=== PATIENT | female | born 1975 | race Caucasian/White ===

== ENCOUNTER 2017-05-25 09:39 | Emergency (ER) | payer BC ==
[2017-05-25 09:50] VITALS: BP 148/77
[2017-05-25] MEDS ORDERED: PRED20TA PO (10:14)
[2017-05-25] MEDS ORDERED: IBUP-1060 PO (10:14)
[2017-05-25] MEDS ORDERED: CYCL10TA2 PO (10:14)
--- NOTE | 2017-05-25 10:14 | PHYS DOC ---
Past Medical History Past Medical History: No Pertinent History Past Surgical History: Appendectomy Additional Information: 08/27 ppd Alcohol Use: Occasionally Drug Use: Marijuana Adult General Chief Complaint Chief Complaint: LOWER BACK PAIN OR INJURY HPI HPI Patient is a 42 year old female presents to the emergency department with a history of right lower back to buttock pain for the last 4 days. Patient states the pain radiates into the right leg. She has taken ibuprofen and norco for the pain with minimal relief. She denies numbness or tingling to the lower leg. She denies any injury or trauma to the back. Denies any dysuria. Review of Systems Review of Systems Constitutional: Denies fever or chills [] Eyes: Denies change in visual acuity, redness, or eye pain [] HENT: Denies nasal congestion or sore throat [] Respiratory: Denies cough or shortness of breath [] Cardiovascular: No additional information not addressed in HPI [] GI: Denies abdominal pain, nausea, vomiting, bloody stools or diarrhea [] : Denies dysuria or hematuria [] Musculoskeletal: right lower back to buttock pain denies joint pain Integument: Denies rash or skin lesions [] Neurologic: Denies headache, focal weakness or sensory changes [] Endocrine: Denies polyuria or polydipsia [] Current Medications Current Medications Current Medications Medications (Trade) Dose Ordered Sig/Marcellus Start Time Stop Time Status Last Admin Dose Admin Cyclobenzaprine HCl (Flexeril) 10 mg 1X ONCE 05/25/17 10:15 05/25/17 10:16 UNV Ibuprofen (Motrin) 800 mg 1X ONCE 05/25/17 10:15 05/25/17 10:16 UNV Prednisone (Prednisone) 40 mg 1X ONCE 05/25/17 10:15 05/25/17 10:16 UNV Physical Exam Physical Exam Constitutional: Well developed, well nourished, no acute distress, non-toxic appearance. [] HENT: Normocephalic, atraumatic, bilateral external ears normal, oropharynx moist, no oral exudates, nose normal. [] Eyes: PERRLA, EOMI, conjunctiva normal, no discharge. [] Neck: Normal range of motion, no tenderness, supple, no stridor. [] Cardiovascular:Heart rate regular rhythm [] Lungs & Thorax: no respiratory distress noted Skin: Warm, dry, no erythema, no rash. [] Back: Right lower back to buttock tenderness Extremities: No tenderness, no cyanosis, no clubbing, ROM intact, no edema. Bilateral lower extremities with 2+ peripheral pulses, cap refill brisk < 2 seconds. Neurologic: Alert and oriented X 3, normal motor function, normal sensory function, no focal deficits noted. [] Psychologic: Affect normal, judgement normal, mood normal. [] Current Patient Data Vital Signs Vital Signs Date Time Temp Pulse Resp B/P (MAP) Pulse Ox O2 Delivery O2 Flow Rate FiO2 05/25/17 09:50 98.0 96 18 100 Room Air 98.0 EKG EKG [] Radiology/Procedures Radiology/Procedures [] Course & Med Decision Making Course & Med Decision Making Pertinent Labs and Imaging studies reviewed. (See chart for details) Patient will be provided with flexeril, ibuprofen and prednisone here in the emergency department. Patient will be discharged home in stable condition. Patient will be discharged home with flexeril in which this medication will cause drowsiness do not take if you need to be alert and oriented, Patient will also be given prescription for ibuprofen and prednisone. Patient was provided with proper body mechanics. Patient recommended to followup with PCP in 5-7 days. Patient was also recommended to use ice packs on 20 minutes and off 20 minutes several times a day. Patient agrees with discharge instructions, treatment regimen and followup recommendations. All questions and concerns answered at patients bedside. [] Dragon Disclaimer Dragon Disclaimer This electronic medical record was generated, in whole or in part, using a voice recognition dictation system. Departure Departure Impression: Primary Impression: Back pain with sciatica Disposition: HOME, SELF-CARE Condition: STABLE Patient Instructions: Sciatica with Rehab-Sports[facility], Sciatica, [id number] Additional Instructions: Activity as tolerated Medication as prescribed Ibuprofen should be take with food to prevent stomach upset Flexeril will cause drowsiness do not take if you need to be alert and oriented Ice packs on 20 minutes and off 20 minutes several times a day Followup with primary care provider in 5-7 days Return to emergency department as needed for signs and symptoms that become worse. Scripts Prednisone (PREDNISONE) 20 Mg Tablet 40 MG PO DAILY for 7 Days, #14 TAB Prov: A[facility] [employer] 05/25/17 Ibuprofen (IBUPROFEN) 800 Mg Tablet 800 MG PO PRN Q6HRS Y for INFLAMMATION, #30 TAB Prov: AUGUSTA PIERRE APRN 05/25/17 Cyclobenzaprine Hcl (CYCLOBENZAPRINE HCL) 10 Mg Tablet 1 TAB PO TID Y for MUSCLE SPASMS, #30 TAB Prov: AUGUSTA PIERRE APRN 05/25/17 AUGUSTA PIERRE APRN May 25, 2017 10:14
[2017-05-25] MEDS ORDERED: predniSONE 20 MG TABLET PO ONE (10:15)
[2017-05-25] MEDS ORDERED: IBUPROFEN 800 MG TABLET. PO ONE (10:15)
[2017-05-25] MEDS ORDERED: CYCLOBENZAPRINE 10 MG TABLET. PO ONE (10:15)
== END 2017-05-25 10:35 | disposition home or self-care (01) ==
LOC: ER 09:39
DX: M54.41 Lumbago with sciatica, right side (principal); F17.200 Nicotine dependence, unspecified, uncomplicated; Z90.49 Acquired absence of other specified parts of digestive tract
CPT/HCPCS: 99284; J7512